=== PATIENT | male | born 1980 | race Caucasian/White ===

== ENCOUNTER → 2018-03-25 | Outpatient (CLI) | payer BC ==
[~2018-03-25] MED LIST: NORCO 325 MG-51 TAB PO
== END ==
LOC: COL.VAS 10:45
DX: M79.89 Other specified soft tissue disorders (principal)

== ENCOUNTER 2018-10-25 13:57 | Emergency (ER) | payer BC ==
[~2018-10-25] VITALS: Ht 182.9 cm; Wt 100.0 kg
[2018-10-25 13:59] VITALS: TEMP 96.9
[2018-10-25] MEDS ORDERED: CEPHALEXIN500 M1 PO (14:31)
[2018-10-25 15:08] VITALS: BP 105/71; PULSE 86
== END 2018-10-25 15:10 | disposition home or self-care (01) ==
LOC: COL.ER 13:57
DX: S51.812A Laceration without foreign body of left forearm, initial encounter (principal); Z23 Encounter for immunization; W25.XXXA Contact with sharp glass, initial encounter; Y92.009 Unspecified place in unspecified non-institutional (private) residence as the place of occurrence of the external cause

== ENCOUNTER → 2018-11-06 | Outpatient (CLI) | payer BC ==
[~2018-11-06] MED LIST changes: +CEPHALEXIN500 M1 PO
[2018-11-06 11:06] VITALS: BP 127/76; PULSE 84; TEMP 98.1
== END ==
LOC: COL.ER 10:29
DX: Z48.02 Encounter for removal of sutures (principal)

== ENCOUNTER 2020-10-21 13:45 | Outpatient (CLI) | payer SELFPAY ==
[2020-10-21 14:15] VITALS: BP 105/65; PULSE 98; TEMP 99
[2020-10-21 14:30] VITALS: BP 104/64; PULSE 93; TEMP 99
[2020-10-21 14:45] VITALS: BP 105/57; PULSE 93; TEMP 99
[2020-10-21 15:00] VITALS: BP 104/65; PULSE 92; TEMP 99
[2020-10-21 15:15] VITALS: BP 101/82; PULSE 93; TEMP 99
[2020-10-21 15:30] VITALS: BP 101/73; PULSE 88; TEMP 99
== END 2020-10-21 15:45 | disposition home or self-care (01) ==
LOC: EUO 13:45
DX: U07.1 COVID-19 (principal)
CPT/HCPCS: Q0244

== ENCOUNTER → 2023-10-04 | Outpatient (CLI) | payer OTHER | LOC: COL.RAD 08:22 | DX: M48.26 Kissing spine, lumbar region (principal); M48.061 Spinal stenosis, lumbar region without neurogenic claudication; M48.07 Spinal stenosis, lumbosacral region ==

== ENCOUNTER 2023-11-04 22:40 | Emergency (ER) | payer OTHER ==
[~2023-11-04] VITALS: Ht 185.4 cm; Wt 66.8 kg
[2023-11-04 22:54] VITALS: TEMP 98.3
[2023-11-04 23:47] LABS: BASO % 0.4 % (0.0-2.0); EOS # 0.2 K/mm3 (0.0-0.7); EOS % 2.6 % (0.0-4.0); GRAN # 4.9 K/mm3 (1.4-6.5); GRAN % 60.5 % (42.2-75.2); HEMATOCRIT 43.1 % (42.0-52.0); HEMOGLOBIN 14.5 g/dl (13.5-18.0); LYMPH # 1.9 K/mm3 (1.2-3.4); MEAN CELL VOLUME 87 fl (80.0-100.0); MEAN CORPUSCULAR HEMOGLOBIN 29 pg (27-31); MEAN CORPUSCULAR HGB CONC 34 g/dl (33.0-37.0); MEAN PLATELET VOLUME 9.9 fl (7.4-10.4); MONO # 1.1 K/mm3 (0.1-0.6); MONO % 13.3 % (1.7-9.3); PLATELET COUNT 251 K/mm3 (130-400); RED BLOOD COUNT 4.98 M/mm3 (4.20-5.60); REDCELL DISTRIBUTION WIDTH-CV 11.9 % (11.5-14.5)
[2023-11-04 23:56] LABS: PH 5.5 (5.0-8.5); URINE APPEARANCE CLEAR (CLEAR/HAZY); URINE BLOOD NEGATIVE (NEGATIVE); URINE COLOR YELLOW (YELLOW); URINE GLUCOSE NEGATIVE (NEGATIVE); URINE KETONE 1+ (NEGATIVE); URINE NITRATE NEGATIVE (NEGATIVE); URINE PROTEIN(semi-quant) TRACE (NEGATIVE)
[2023-11-05 00:05] LABS: ALBUMIN 4.6 g/dL (3.5-5.0); BILIRUBIN,TOTAL 1.1 mg/dL (0.2-1.2); CALCIUM 10.5 mg/dL (8.4-10.2); CREATININE, serum 1.07 mg/dL (0.72-1.25); TOTAL PROTEIN 8.1 g/dl (6.2-8.1)
[2023-11-05 00:06] LABS: POTASSIUM 2.4 mEq/L (3.5-4.5)
[2023-11-05 00:08] LABS: COLLECTION METHOD CLEAN CATCH
[2023-11-05] MEDS ORDERED: NS 1,000 ML IV ONE (00:30)
[2023-11-05] MEDS ORDERED: Potassium Chloride 100 ML IV ONE (00:30)
[2023-11-05] MEDS ORDERED: K-TAB10 PO (01:36)
[2023-11-05 02:05] VITALS: BP 119/89; PULSE 76
== END 2023-11-05 02:05 | disposition home or self-care (01) ==
LOC: COL.ER 22:40
PROVIDERS: Physician Assistant
DX: E87.6 Hypokalemia (principal); R63.4 Abnormal weight loss
CPT/HCPCS: J3480; J7030

== ENCOUNTER 2023-12-03 22:06 | Inpatient (IN) | payer OTHER ==
[~2023-12-03] VITALS: Ht 182.9 cm; Wt 66.0 kg
[~2023-12-03 22:06] MED LIST changes: +K-TAB10 PO
[2023-12-03] MEDS ORDERED: diphenhydrAMINE 50 MG/ML 1 ML VIAL IV ONE (22:45)
[2023-12-03 22:51] LABS: BASO % 0.5 % (0.0-2.0); EOS # 0.1 K/mm3 (0.0-0.7); EOS % 0.7 % (0.0-4.0); GRAN # 3.7 K/mm3 (1.4-6.5); GRAN % 50.4 % (42.2-75.2); HEMOGLOBIN 15.1 g/dl (13.5-18.0); LYMPH # 2.3 K/mm3 (1.2-3.4); LYMPH % 31.3 % (20.0-51.0); MEAN CELL VOLUME 84 fl (80.0-100.0); MEAN CORPUSCULAR HEMOGLOBIN 29 pg (27-31); MEAN CORPUSCULAR HGB CONC 34 g/dl (33.0-37.0); MEAN PLATELET VOLUME 10.2 fl (7.4-10.4); MONO # 1.2 K/mm3 (0.1-0.6); MONO % 16.8 % (1.7-9.3); PLATELET COUNT 321 K/mm3 (130-400); RED BLOOD COUNT 5.23 M/mm3 (4.20-5.60); REDCELL DISTRIBUTION WIDTH-CV 11.8 % (11.5-14.5)
[2023-12-03 23:09] LABS: ALBUMIN 4.6 g/dL (3.5-5.0); BILIRUBIN,TOTAL 1.4 mg/dL (0.2-1.2); CALCIUM 12.1 mg/dL (8.4-10.2); CREATININE, serum 2.07 mg/dL (0.72-1.25); MAGNESIUM 2.2 mg/dL (1.6-2.6); TOTAL PROTEIN 8.8 g/dl (6.2-8.1)
[2023-12-03 23:12] LABS: POTASSIUM 2.2 mEq/L (3.5-4.5)
[2023-12-03] MEDS ORDERED: LR 1,000 ML IV ONE (23:15)
[2023-12-03] MEDS ORDERED: Magnesium Sulfate 4% 50 ML IV ONE (23:30)
[2023-12-04] VITALS (755 sets, daily range): BP systolic 94–115; BP diastolic 46–78; PULSE 62–90; TEMP 98.5–98.8; O2SAT 74–100
[2023-12-04] MEDS ORDERED: REGLAN 10MG/11 MG/ML PO (00:58)
[2023-12-04] MEDS ORDERED: PRIL40 PO (00:59)
[2023-12-04] MEDS ORDERED: ZOFRAN ODT4 MG PO (00:59)
[2023-12-04] MEDS ORDERED: SENNA-LAX8.6 MG PO (01:00)
[2023-12-04] MEDS ORDERED: MIRALAX PA17 GM/Dose PO (01:00)
[2023-12-04] MEDS ORDERED: ULTRAM 50MG TAB50 MG PO (01:01)
[2023-12-04] MEDS ORDERED: Potassium Chloride 100 ML IV SCH ×4 (01:45→23:45)
[2023-12-04] MEDS ORDERED: Ondansetron 4 MG/2 ML VIAL IV PRN (01:45)
[2023-12-04] MEDS ORDERED: ACETAZOLAMIDE SODIUM IV ONE (02:00)
[2023-12-04] MEDS ORDERED: WATER FOR INJECTION STERILE IV ONE (02:00)
[2023-12-04] MEDS ORDERED: NS 1,000 ML IV SCH (02:15)
--- NOTE | 2023-12-04 03:21 | NUR ---
RECEIVED REPORT FROM RADHA MCRAE RN. PATIENT ARRIVED TO UNIT AROUND 0210. PERIPHERAL IV'S TO BILATERAL FOREARMS. ALL BELONGINGS WITH PATIENT AT TIME OF TRANSFER. PATIENT ORIENTED TO ROOM, CALL LIGHT WITHIN REACH. NO ACUTE EVENTS.
--- NOTE | 2023-12-04 03:24 | NUR ---
HOSPITALIST MONA GIMENEZ CAME TO ICU AND GAVE THIS RN VERBAL ORDERS TO PUT IN ANOTHER ORDER OF 40 MEQ POTASSIUM SOON THE LAST BAG OF POTASSIUM OF THE CURRENT ORDERS (OF 40 MEQ), FINISH.
[2023-12-04 06:48] LABS: COLLECTION METHOD CLEAN CATCH
--- NOTE | 2023-12-04 07:00 | NUR ---
REPORT RECEIVED FROM AAYUSH LEÓN. PT RESTING IN BED, VSS ON ROOM AIR. IVF AND POTASSIUM INFUSING TO PERIPHERAL IV ORDERED. PT ALERT AND ORIENTED, DENIES NEEDS, CALL LIGHT IN REACH.
[2023-12-04 07:07] LABS: URINE APPEARANCE CLOUDY (CLEAR/HAZY); URINE BLOOD NEGATIVE (NEGATIVE); URINE COLOR YELLOW (YELLOW); URINE GLUCOSE NEGATIVE (NEGATIVE); URINE KETONE 1+ (NEGATIVE); URINE NITRATE NEGATIVE (NEGATIVE); URINE PROTEIN(semi-quant) 1+ (NEGATIVE); URINE UROBILINOGEN 0.2 E.U/dL (0.2-1.0)
[2023-12-04 07:19] LABS: PH >= 9.0 (5.0-8.5)
[2023-12-04 08:01] LABS: CALCIUM 9.8 mg/dL (8.4-10.2); CREATININE, serum 1.17 mg/dL (0.72-1.25)
[2023-12-04 08:17] LABS: POTASSIUM 2.5 mEq/L (3.5-4.5)
[2023-12-04] MEDS ORDERED: Pantoprazole 40 MG in NS 10 ML IV SCH (09:00)
[2023-12-04] MEDS ORDERED: Mag/Al Hydrox/Simeth Susp 30 ML CUP PO PRN (10:15)
[2023-12-04] MEDS ORDERED: *Potassium Replacement Protocol MC SCH ×2 (10:15→14:00)
--- NOTE | 2023-12-04 10:42 | NUR ---
clerical and administrative workers met with pt to discuss intake information. he reports to live with his and family in [place]. He sees Dr. Rascon for PCP needs and obtains medications from [facility] with no difficulties. Pt is independent with ADLS and uses no DME. He reports to be self empolyed. He confirms his , Myrna [phone] is his contact and is agreeable to her being NOK due to no DPOA-HC. He reports to have 3 insurances: [employer], [facility] [employer], and one other. He emailed two to and this was forwarded to the [facility] team and UR ALIN [employer]. Discharge Plan: home likely
[2023-12-04] MEDS ORDERED: THIAMINE IV SCH (12:00)
[2023-12-04] MEDS ORDERED: [UNRECOGNIZED DRUG - OTHER] IV SCH (12:00)
[2023-12-04] MEDS ORDERED: SODIUM CHLORIDE IV SCH (12:00)
[2023-12-04] MEDS ORDERED: FOLIC ACID 1 MG IV SCH (12:00)
[2023-12-04 13:39] LABS: CALCIUM 9.3 mg/dL (8.4-10.2); CREATININE, serum 0.95 mg/dL (0.72-1.25)
[2023-12-04 13:45] LABS: POTASSIUM 2.5 mEq/L (3.5-4.5)
[2023-12-04 14:05] LABS: TRICYCLIC ANTIDEPRESS URINE NEGATIVE (NEGATIVE)
--- NOTE | 2023-12-04 18:16 | NUR ---
Pt just arrived to the floor from ICU. Pt came up in a wheelchair and then transferred over to the bed. Pt does have IV potassium infusing as well as banana bag. Pt has PICC line to his left arm and INT to his right forearm. Oriented pt and his to the room and discussed plan of care. Pt reports that for the first time in a long time he is starting to feel hungry. Tonie, from ICU, stated she would try and contact Dr Castillo to see about getting him something to eat. Pt has complaints of a migraine at this time, reports he does not typically get them.
--- NOTE | 2023-12-04 19:00 | NUR ---
PATIENT AWAKE AND ALERT, SITTING UP IN BED. PATIENT CURRENTLY EATING HIS DINNER. FAMILY AT BEDSIDE. CALL LIGHT WITHIN REACH. IV MEDICAITON INFUSING ORDERED (SEE EMAR FOR DETAILS).
--- NOTE | 2023-12-04 20:25 | NUR ---
CALL BACK RECIEVED FROM DR PELAEZ. INFORMED THE PHYSICIAN PATIENT COMPLAINING OF LEFT SIDE PAIN AND IS CONCERNED (AFTER USING [employer]) THAT SHE HAS "TOO MUCH AIR IN THERE FROM SURGERY". PATIENT STATES IT IS INTERMITTENT STABBING PAIN TO THE LEFT SIDE, RATED AN 8/10 ON THE NUMERIC PAIN SCALE. TORBV RECIEVED FROM DR PELAEZ, ENTERED IN BY THIS RN. SEE ORDERS FOR DETAILS.
[2023-12-04 23:26] LABS: CALCIUM 8.3 mg/dL (8.4-10.2); CREATININE, serum 0.82 mg/dL (0.72-1.25); PHOSPHOROUS 1.8 mg/dL (2.3-4.7)
[2023-12-04 23:37] LABS: POTASSIUM 2.7 mEq/L (3.5-4.5)
[2023-12-05] VITALS (12 sets, daily range): BP systolic 90–102; BP diastolic 51–61; PULSE 57–67; TEMP 97.8–98.5
--- NOTE | 2023-12-05 | NUR ---
NOTIFIED OF PATIENT CRITICAL POTASSIUM OF 2.7. PER OCYOVANY WITH K PROTOCOL.
--- NOTE | 2023-12-05 03:40 | NUR ---
PATIENT CALLED FOR THIS RN STATING HE IS HAVING ABDOMINAL PAIN TO THE LEFT LOWER QUADRANT WITH LOWER ABCK PAIN. THIS IS DESCRIBED SHARP CONSTANT PAIN RATED A 8/10. NIGHT PA NOTIFIED AND ORDERED MORPHINE 2MG IV X1 NOW.
[2023-12-05] MEDS ORDERED: Morphine 4 MG/ML VIAL IV ONE (03:45)
[2023-12-05 07:35] LABS: BASO % 0.7 % (0.0-2.0); EOS # 0.1 K/mm3 (0.0-0.7); EOS % 3.1 % (0.0-4.0); GRAN # 2.2 K/mm3 (1.4-6.5); GRAN % 49.1 % (42.2-75.2); LYMPH # 1.5 K/mm3 (1.2-3.4); MEAN CELL VOLUME 86 fl (80.0-100.0); MEAN CORPUSCULAR HGB CONC 33 g/dl (33.0-37.0); MEAN PLATELET VOLUME 10.3 fl (7.4-10.4); MONO # 0.6 K/mm3 (0.1-0.6); MONO % 13.9 % (1.7-9.3); RED BLOOD COUNT 3.76 M/mm3 (4.20-5.60); REDCELL DISTRIBUTION WIDTH-CV 12.1 % (11.5-14.5)
[2023-12-05 07:36] LABS: HEMATOCRIT 32.5 % (42.0-52.0); HEMOGLOBIN 10.8 g/dl (13.5-18.0); MEAN CORPUSCULAR HEMOGLOBIN 29 pg (27-31); PLATELET COUNT 210 K/mm3 (130-400)
[2023-12-05 07:52] LABS: CALCIUM 8.9 mg/dL (8.4-10.2); CREATININE, serum 0.74 mg/dL (0.72-1.25); PHOSPHOROUS 1.9 mg/dL (2.3-4.7); POTASSIUM 3.1 mEq/L (3.5-4.5)
[2023-12-05] MEDS ORDERED: Potassium Chloride 100 ML IV SCH (08:00)
--- NOTE | 2023-12-05 09:00 | NUR ---
Patient awake, alert and oriented, drowsy at times but arousable. C/O pain after eating breakfast this AM but tolerating more food than he has been and having multiple bowel movements. Bed in lowest position with call light within reach.
--- NOTE | 2023-12-05 09:01 | NUR ---
Call to Dr. Castillo regarding patient's pain after eating this morning - rating 7/[address] Castillo she will put in orders.
[2023-12-05] MEDS ORDERED: traMADol 50 MG TAB PO PRN (09:15)
[2023-12-05] MEDS ORDERED: Acetaminophen 500 MG TAB PO PRN (09:15)
[2023-12-05 12:20] LABS: CALCIUM 8.7 mg/dL (8.4-10.2); CREATININE, serum 0.74 mg/dL (0.72-1.25); POTASSIUM 4.2 mEq/L (3.5-4.5)
--- NOTE | 2023-12-05 15:42 | NUR ---
X1 emesis this afternoon shortly after taking reglan - pt states he had these same issues when taking reglan at home. Has been tolerating general diet for the last day and a half - c/o pain but no emesis prior to now. PRN given.
[2023-12-05 18:03] LABS: CALCIUM 8.2 mg/dL (8.4-10.2); CREATININE, serum 0.67 mg/dL (0.72-1.25); POTASSIUM 3.3 mEq/L (3.5-4.5)
--- NOTE | 2023-12-05 22:31 | NUR ---
patient lying in bed, alert and oriented x4. denies chest pain/discomfort and shortness of breath. reports 8/10 pain in lower back and nausea rated 5/10, per request ultram and compazine given. upon reassessment pain rated 3/10 and nause 0/10. 1999- PCT reported BG level as 59, juice provided and patient eating a reeces pieces as tolerated, upon recheck, BG 94. 2153- MIKA Herring notified of BG levels, aware of previous vomiting epsiode earlier in the afternoon around 1530, new orders placed for accucheck and hypoglycemic protocol as needed. PICC line in [facility], site [facility]. with concerns about plan of care going forward, education provided to best of this RN's knowledge, will pass concerns on to day shift RN, verbally understood and wishes to be present during physician rounding tomorrow. pt ambulates with steady gait and has no further needs, questions or concerns at this time. call light within reach.
[2023-12-05 23:23] LABS: CALCIUM 8.4 mg/dL (8.4-10.2); CREATININE, serum 0.71 mg/dL (0.72-1.25); POTASSIUM 3.3 mEq/L (3.5-4.5)
[2023-12-06] VITALS (7 sets, daily range): BP systolic 95–106; BP diastolic 54–66; PULSE 55–100; TEMP 97.6–98.4
[2023-12-06] MEDS ORDERED: Potassium Chloride 100 ML IV SCH (00:30)
[2023-12-06 04:55] LABS: BASO % 0.8 % (0.0-2.0); EOS # 0.3 K/mm3 (0.0-0.7); EOS % 6.5 % (0.0-4.0); GRAN # 1.3 K/mm3 (1.4-6.5); GRAN % 33.5 % (42.2-75.2); LYMPH # 1.8 K/mm3 (1.2-3.4); LYMPH % 44.1 % (20.0-51.0); MEAN CELL VOLUME 84 fl (80.0-100.0); MEAN CORPUSCULAR HEMOGLOBIN 29 pg (27-31); MEAN CORPUSCULAR HGB CONC 35 g/dl (33.0-37.0); MEAN PLATELET VOLUME 10.2 fl (7.4-10.4); MONO # 0.6 K/mm3 (0.1-0.6); MONO % 14.8 % (1.7-9.3); PLATELET COUNT 195 K/mm3 (130-400); RED BLOOD COUNT 3.78 M/mm3 (4.20-5.60)
[2023-12-06 05:29] LABS: HEMATOCRIT 31.7 % (42.0-52.0)
[2023-12-06 05:40] LABS: CALCIUM 8.5 mg/dL (8.4-10.2); CREATININE, serum 0.68 mg/dL (0.72-1.25); MAGNESIUM 2.4 mg/dL (1.6-2.6); POTASSIUM 3.6 mEq/L (3.5-4.5)
--- NOTE | 2023-12-06 10:00 | NUR ---
SHIFT ASSESSMENT COMPLETE. VSS. PATIENT RESTING IN BED, SEEMS TO BE SLIGHTLY AGGITATED THIS AM. ALL MORNING MEDS GIVEN ORDERED. PATIENT HAS NO REQUST THIS AM. AMBUILATING AROUND THE ROOM IND. PICC LINE INT AT THIS TIME. CALL LIGHT IN REACH
[2023-12-06] MEDS ORDERED: COMPAZINE 110 MG/TAB PO (11:51)
[2023-12-06] MEDS ORDERED: NATURE'S BLEND100 M2 PO (11:52)
[2023-12-06] MEDS ORDERED: FOLIC ACID 11 MG/TA1 PO (11:52)
[2023-12-06 11:53] LABS: CALCIUM 8.4 mg/dL (8.4-10.2); CREATININE, serum 0.66 mg/dL (0.72-1.25); POTASSIUM 3.6 mEq/L (3.5-4.5)
[2023-12-06] MEDS ORDERED: PROTONIX 40MG T40 MG PO (11:53)
[2023-12-06] MEDS ORDERED: Multivitamin TAB PO SCH (12:00)
[2023-12-06] MEDS ORDERED: Potassium Phoshate 20 MM in NS 250 ML For P Level 1.5-1.9 IV ONE (12:00)
[2023-12-06] MEDS ORDERED: Folic Acid 1 MG TAB PO SCH (12:00)
[2023-12-06] MEDS ORDERED: Thiamine 100 MG TAB PO SCH (12:00)
== END 2023-12-06 14:00 | disposition home or self-care (01) | DRG 640 ==
LOC: COL.ER 22:06 → SURG 12-04 01:42 → ICU 12-04 01:42 → SURG 12-04 18:00
PROVIDERS: Emergency Medicine; Internal Medicine; Physician Assistant; ADMIT Internal Medicine
PROC: 02HV33Z Insertion of Infusion Device into Superior Vena Cava, Percutaneous Approach (ICD-10-PCS; principal; 2023-12-04)
DX: E87.6 Hypokalemia (principal); E43 Unspecified severe protein-calorie malnutrition; N17.9 Acute kidney failure, unspecified; Z68.1 Body mass index [BMI] 19.9 or less, adult; K31.84 Gastroparesis; E87.3 Alkalosis; E83.39 Other disorders of phosphorus metabolism; R94.31 Abnormal electrocardiogram [ECG] [EKG]
CPT/HCPCS: C1751; J0780; J1120; J1200; J2270; J2470; J2765; J3411; J3475; J3480; J7030; J7050; J7120